=== PATIENT | female | born 1945 | race Caucasian/White ===

== ENCOUNTER 2018-03-26 20:37 | Inpatient (IN) | payer MEDICARE, OTHER ==
[~2018-03-26] VITALS: Ht 167.6 cm; Wt 101.1 kg
--- OUTSIDE RECORDS SUMMARY | ~2018-03-26 | XMS | Clinical Summary ---
Demographics + + + | Address | [address] | | | [place] [address] | + + + | Home Phone | | + + + | Preferred Language | Unknown | + + + | Marital Status | | + + + | Baptist Affiliation | Unknown | + + + | Race | Unknown | + + + | Ethnic Group | Unknown | + + + Author + + + | Author | [facility] | + + + | Organization | [facility] | + + + | Address | Unknown | + + + | Phone | Unavailable | + + + Support + + +---------+ + | Name | Relationship | Address | Phone | + + +---------+ + | No,Contact | ECON | Unknown | | + + +---------+ + Care Team Providers + +------+ + | Care Inker Machine Name | Role | Phone | + +------+ + | Lei Inman MD | PP | | + +------+ + Allergies + + + + + + | Active Allergy | Reactions | Severity | Noted | Comments | | | | | Date | | + + + + + + | Fluticasone | Rash | Medium | 11/20/19 | | | Propionate (Inhal) | | | 18 | | + + + + + + | Hydrocodone-Acetamin | Itching, Rash | Medium | 11/09/19 | | | ophen | | | 18 | | + + + + + + Current Medications + + +-------+---------+------+------+-------+ | Prescription | Sig. | Disp. | Refills | Star | End | Statu | | | | | | t | Date | s | | | | | | Date | | | + + +-------+---------+------+------+-------+ | simvastatin | Take 40 mg by mouth | | | | | Activ | | (ZOCOR) 40 MG tablet | nightly. | | | | | e | + + +-------+---------+------+------+-------+ | aspirin 81 MG | Take 81 mg by mouth | | | | | Activ | | tablet | daily. | | | | | e | + + +-------+---------+------+------+-------+ | montelukast | Take 10 mg by mouth | | | | | Activ | | (SINGULAIR) 10 MG | nightly. | | | | | e | | tablet | | | | | | | + + +-------+---------+------+------+-------+ | ranitidine | Take 150 mg by mouth | | | | | Activ | | (ZANTAC) 150 MG | daily. | | | | | e | | tablet | | | | | | | + + +-------+---------+------+------+-------+ | albuterol | Inhale 2 puffs into | | | | | Activ | | (PROVENTIL | the lungs every 4 | | | | | e | | HFA;VENTOLIN HFA) | (four) hours as | | | | | | | 108 (90 Base) | needed for Wheezing. | | | | | | | MCG/ACT inhaler | | | | | | | + + +-------+---------+------+------+-------+ | | Inhale 1 puff into | | | | | Activ | | umeclidinium-vilante | the lungs daily. | | | | | e | | rol (ANORO ELLIPTA) | | | | | | | | 62.5-25 MCG/INH | | | | | | | | inhaler | | | | | | | + + +-------+---------+------+------+-------+ Active Problems + + + | Problem | Noted Date | + + + | Right bundle branch block | 11/08/2017 | + + + | Hypertension | | + + + + + | Overview: off meds since she lost weight | + + +------+---+ | RBBB | | +------+---+ + + | Overview: bifascicular block (RBBB + LAFB) since at least | | 2011 | + + Family History + + +------+ + | Medical History | Relation | Name | Comments | + + +------+ + | Cancer | Father | | lip cancer | + + +------+ + | High cholesterol | Father | | | + + +------+ + | Hypertension | Father | | | + + +------+ + | Cancer | Maternal | | | | | Grandmoth | | | | | er | | | + + +------+ + | Cancer | Mother | | | + + +------+ + | Heart disease | Paternal | | | | | Grandfath | | | | | er | | | + + +------+ + | Hypertension | Paternal | | | | | Grandmoth | | | | | er | | | + + +------+ + | Stroke | Paternal | | | | | Grandmoth | | | | | er | | | + + +------+ + | Asthma | Son | | | + + +------+ + + +------+ + + | Relation | Name | Status | Comments | + +------+ + + | Brother | | Alive | | + +------+ + + | Brother | | Alive | | + +------+ + + | Father | | | Hyperlipidemia, HTN | | | | (Age | | | | | 89) | | + +------+ + + | Maternal Grandfather | | | HTN,CVA | + +------+ + + | Maternal Grandmother | | | throat cancer | | | | (Age | | | | | 82) | | + +------+ + + | Mother | | | colorectal cancer | | | | (Age | | | | | 72) | | + +------+ + + | Paternal Grandfather | | | [place] | | | | (Age | | | | | 52) | | + +------+ + + | Paternal Grandmother | | | age related | | | | (Age | | | | | 92) | | + +------+ + + | Sister | | Alive | | + +------+ + + | Sister | | Alive | | + +------+ + + | Son | | Alive | | + +------+ + + | Son | | Alive | | + +------+ + + | Son | | Alive | | + +------+ + + | Son | | Alive | | + +------+ + + Social History + +-------+ +--------+------+ | Tobacco Use | Types | Packs/Day | Years | Date | | | | | Used | | + +-------+ +--------+------+ | Never Smoker | | | | | + +-------+ +--------+------+ + +---+---+---+ | Smokeless Tobacco: | | | | | Never Used | | | | + +---+---+---+ + + +---------+ + | Alcohol Use | Drinks/We | oz/Week | Comments | | | ek | | | + + +---------+ + | Yes | | | "occasionally" | + + +---------+ + + + + | Sex Assigned at | Date Recorded | | | | + + + | Not on file | | + + + Last Filed Vital Signs + + + + | Vital Sign | Reading | Time Taken | + + + + | Blood Pressure | 124/68 | 11/19/2017 8:53 AM PDT | + + + + | Pulse | 82 | 11/19/2017 8:53 AM PDT | + + + + | Temperature | - | - | + + + + | Respiratory Rate | - | - | + + + + | Oxygen Saturation | 97% | 11/19/2017 8:53 AM PDT | + + + + | Inhaled Oxygen | - | - | | Concentration | | | + + + + | Weight | 97.5 kg (215 lb) | 11/19/2017 8:53 AM PDT | + + + + | Height | 167.6 cm (5' 6") | 11/19/2017 8:53 AM PDT | + + + + | Body Mass Index | 34.7 | 11/19/2017 8:53 AM PDT | + + + + Plan of Treatment + + + + + | Health Maintenance | Due Date | Last Done | Comments | + + + + + | Vaccine: | | | | | Dtap/Tdap/Td (1 - | 5 | | | | Tdap) | | | | + + + + + | Breast Cancer | | | | | Screening | 6 | | | | (Mammogram) | | | | + + + + + | Colon Cancer | | | | | Screening | 6 | | | | (Colonoscopy) | | | | + + + + + | DEXA SCAN SCREENING | | | | | | 1 | | | + + + + + | Vaccine: | | | | | Pneumococcal 65+ | 1 | | | | Low/Medium Risk (1 | | | | | of 2 - PCV13) | | | | + + + + + | Vaccine: Influenza | | | | | (#1) | 8 | | | + + + + + Results Not on filefrom Last 3 Months Insurance + +--------+ +------+-------+ + | Payer | Benefi | Subscriber | Type | Phone | Address | | | t Plan | ID | | | | | | / | | | | | | | Group | | | | | + +--------+ +------+-------+ + | MEDICARE | MEDICA | [id number] | | | [address] | | | RE | | | | [place] [address] | | | IP-OP | | | | | + +--------+ +------+-------+ + | [employer] [place] | MUTUAL | [id number] | | | | | | [place] | | | | | | | [place] | | | | | + +--------+ +------+-------+ + + +--------+ +--------+ + + | Guarantor Name | Accoun | Relation to | Date | Phone | Billing Address | | | t Type | Patient | of | | | | | | | | | | + +--------+ +--------+ + + | NGA SMITH | Person | Self [birth year] Home: | [address] | | | al/Fam | | 1945 | [phone] [place] | | | [place] | | | [phone] | [phone] | + +--------+ +--------+ + +
--- OUTSIDE RECORDS SUMMARY | ~2018-03-26 | XMS | Clinical Summary ---
Demographics + + + | Address | [address] | | | [place] [address] | + + + | Home Phone | | + + + | Preferred Language | Unknown | + + + | Marital Status | | + + + | Episcopal Affiliation | Unknown | + + + | Race | Unknown | + + + | Ethnic Group | Unknown | + + + Author + + + | Author | [facility] | + + + | Organization | [facility] | + + + | Address | Unknown | + + + | Phone | Unavailable | + + + Support + + +---------+ + | Name | Relationship | Address | Phone | + + +---------+ + | No,Contact | ECON | Unknown | | + + +---------+ + Care Team Providers + +------+ + | Care Assistant Professor Of Chemistry Name | Role | Phone | + [...] +------+-------+ + | MEDICARE | MEDICA | [id number] | | | [address] | | | RE | | | | [place] [address] | | | IP-OP | | | | | + +--------+ +------+-------+ + | [employer] [place] | MUTUAL | [id number] | | | | | | [place] | | | | | | | [place] | | | | | + +--------+ [...] | [place] | | | [phone] | [phone] | + +--------+ +--------+ + +
--- OUTSIDE RECORDS SUMMARY | ~2018-03-26 | XMS | Clinical Summary ---
Demographics + + + | Address | [address] | | | [place] [address] | + + + | Home Phone | | + + + | Preferred Language | Unknown | + + + | Marital Status | | + + + | Congregational Affiliation | Unknown | + + + | Race | Unknown | + + + | Ethnic Group | Unknown | + + + Author + + + | Author | [facility] | + + + | Organization | [facility] | + + + | Address | Unknown | + + + | Phone | Unavailable | + + + Support + + +---------+ + | Name | Relationship | Address | Phone | + + +---------+ + | No,Contact | ECON | Unknown | | + + +---------+ + Care Team Providers + +------+ + | Care Plant Engineering Supervisor Name | Role | Phone | + [...] + | Paternal Grandfather | | | [place] | | | | (Age | | [...] +------+-------+ + | MEDICARE | MEDICA | [id number] | | | [address] | | | RE | | | | [place] [address] | | | IP-OP | | | | | + +--------+ +------+-------+ + | [employer] [place] | MUTUAL | [id number] | | | | | | [place] | | | | | | | [place] | | | | | + +--------+ [...] | [place] | | | [phone] | [phone] | + +--------+ +--------+ + +
--- OUTSIDE RECORDS SUMMARY | ~2018-03-26 | XMS | Clinical Summary ---
Demographics + + + | Address | [address] | | | [place] [address] | + + + | Home Phone | | + + + | Preferred Language | Unknown | + + + | Marital Status | | + + + | Christian Affiliation | Unknown | + + + | Race | Unknown | + + + | Ethnic Group | Unknown | + + + Author + + + | Author | [facility] | + + + | Organization | [facility] | + + + | Address | Unknown | + + + | Phone | Unavailable | + + + Support + + +---------+ + | Name | Relationship | Address | Phone | + + +---------+ + | No,Contact | ECON | Unknown | | + + +---------+ + Care Team Providers + +------+ + | Care Vocational Rehabilitation Technician Name | Role | Phone | + [...] + | Paternal Grandfather | | | [place] | | | | (Age | | [...] +------+-------+ + | MEDICARE | MEDICA | [id number] | | | [address] | | | RE | | | | [place] [address] | | | IP-OP | | | | | + +--------+ +------+-------+ + | [employer] [place] | MUTUAL | [id number] | | | | | | [place] | | | | | | | [place] | | | | | + +--------+ [...] | [place] | | | [address] | [phone] | + +--------+ +--------+ + +
[~2018-03-26 20:37] MED LIST: ALBUTEROL SULF8.5 GM INH; ASPIRIN EC81 MG PO; CALCIUM + VITA1 EACH PO; DILAUDID2 MG PO; IPRAT-ALBUT 0.5-3 ML INH; LEVAQUIN500 MG PO; LOSARTAN POTAS100 MG PO; MONTELUKAST SOD10 MG PO; PREDNISONE10 MG PO; PROMETHAZINE HC25 M1 PO; QVAR7.3 G1 INH; RANITIDINE HCL75 MG PO; SIMVASTATIN40 MG PO
--- NOTE | 2018-03-27 01:04 | NUR ---
ADMIT TTO CCU PER STRETCHER, MOVED BY STANDING AND PIVOTING FROM STRETCHER TO BED. IS SOB THAT WORSENS WITH EXERTION. USING ASSESSORY MUSCLES AND HOB IS ELEVATED. DUO NEB GIVEN PER RT AND PT STATES THE NEBS ARE HELPING. IS ABLE TO SPEAK IN COMPLETE SENTENCES. UP TO BSC TO VOID AND MARSHAL FAIR. INC COUGH WITH EXERTION ALSO. BREATH TONES NOISY AND UNABLE TO ASSESS HEART TONES.
--- NOTE | 2018-03-27 01:11 | NUR ---
IS RESTING WITH EYES CLOSED.
--- NOTE | 2018-03-27 02:29 | NUR ---
CONT TO REST. NOCHANGES.
--- NOTE | 2018-03-27 03:50 | NUR ---
PT COUGHING, INC SOB. BREATH TONES DECREASED ON INSPIRATTION, COURSE AND WHEEZES EXPIRATION. RT HERE TO GIVE NEB. PT BETTER AFTER NBE AND HAS INC AIR MOVEMENT ON INSPIRATION. STATES FEELING BETTER NOW. STATES THAT THIS EPISODE WAS "SCARY".
--- NOTE | 2018-03-27 05:27 | NUR ---
AWAKENED FOR LAB DRAW. STATES FEELING BETTER. UP TO BSC TO VOID AND TOLERATED BETTER THAN BEFORE, HR UP TO 112, SL SOB WITH EXERTION.
--- NOTE | 2018-03-27 07:45 | NUR ---
PT SHIFT REPORT RECEIVED FROM ENGINEER RN. PT IS RESTING IN BED AT THIS TIME. PT CALLS APPROPRIATELY. NO ISSUES AT THIS TIME. WILL CONTINUE TO CLOSELY MONITOR.
--- NOTE | 2018-03-27 08:30 | NUR ---
PT SHIFT ASSESSMENT COMPLETED. PT IS RESTING IN BED AND ASSISTED UP TO CAMMODE. PT IS INDEPENDENT WITH TRANSFER. PT BREATH SOUNDS WITH AIR MOVEMENT THROUGHOOUT AND EXPIRATORRY WHEEZE THROUGHOUT. BOWEL TONES ACTIVE. WILL CONTINUE TO CLOSELY MONITOR.
--- NOTE | 2018-03-27 11:25 | NUR ---
MD IN TO SEE PATIENT. PER MD PT CAN TRANSFER TO THE MEDICAL FLOOR. PT IS AGREEABLE TO PLAN. PT UP TO CAMMODE AND TOLERATED WELL. NO OTHER ISSUES AT THIS TIME. WILL CONTINUE TO CLOSELY MONITOR.
--- NOTE | 2018-03-27 12:15 | NUR ---
PT REPORT GIVEN TO SHASHANK HUERTAS. PT WILL BE TRANSFERED TO ROOM 112. PT IS IN AGREEMENT WITH PLAN OF CARE. LUNCH ARRIVED. MEDICATIONS ADMINISTERED AND PT TRANSFERED TO ROOM IN CHAIR. ALL BELONGINGS SENT WITH PT. NO FURTHER QUESTIONS AT THIS TIME. SHASHANK HUERTAS WILL RESUME CARE FOR PT.
--- NOTE | 2018-03-27 12:15 | NUR ---
PATIENT TX FROM CCU TO ROOM 112 AT THIS TIME, PATIENT IS ALERT AND ORIENTED AND STEADY ON HER FEET. SHE REMAINS ON OXYGEN AT 1L PER NC AND O2 SATURATION IS AT 94%. PATIENT IV SALINE LOCKED AT THIS TIME AND LUNCH SET UP FOR HER.
--- NOTE | 2018-03-27 13:05 | NUR ---
PATIENT AMBULATED TO THE BATHROOM TO VOID, VOIDED 400 MLS OF CLEAR YELLOW URINE, NO C/O SOB AT THIS TIME
--- NOTE | 2018-03-27 13:38 | NUR ---
PATIENT SITTING IN CHAIR. PATIENT ASKED FOR ANOTHER BREATHING TREATMENT, RN AND RESPATORY NOTIFIED. FRESH WATER GIVEN. CALL LIGHT IN REACH. NO FURTHER NEEDS AT THIS TIME.
--- NOTE | 2018-03-27 14:05 | NUR ---
no change in patients jamil at this time.
[2018-03-27] MEDS ORDERED: ANORO ELLIPTA1 EACH INH (15:24)
[2018-03-27] MEDS ORDERED: ROSUVASTATIN CA10 MG PO (15:24)
[2018-03-27] MEDS ORDERED: VITAMIN D250000 UNIT PO (15:26)
[2018-03-27] MEDS ORDERED: ACID CONTROL150 MG PO (15:29)
[2018-03-27] MEDS ORDERED: ALBUTEROL2.5 MG/3 M INH (15:32)
--- NOTE | 2018-03-27 15:33 | NUR ---
Medications reconciled with patient interview and [facility] pharmacy records
--- NOTE | 2018-03-27 15:46 | EKG ---
[facility] [address] [place], [place] [address] Signed Sinus tachycardia Incomplete right bundle branch block Left anterior fascicular block Left ventricular hypertrophy with repolarization abnormality Anteroseptal infarct , age undetermined Abnormal ECG No previous ECGs available Confirmed by YOLANDA BERRY DO ([id number]) on 03/27/2018 3:46:06 PM Electronically Signed By: YOLANDA BERRY DO 03/27/18 1546 PATIENT NAME: NGA HO Electrocardiogram DATE OF : 47 PHYSICIAN: YOLANDA BERRY DO REPORT #: [id number] REPORT IS CONFIDENTIAL AND NOT TO BE RELEASED WITHOUT AUTHORIZATION
--- NOTE | 2018-03-27 17:21 | NUR ---
PATIENT SITTING IN CHAIR, IN ROOM. CALL LIGHT IN REACH. NO FURTHER NEEDS AT THIS TIME.
--- NOTE | 2018-03-27 19:04 | NUR ---
RECEIVED REPORT FROM ALEKSANDAR OLVERA. PT RESTING IN BED. ON OXYGEN 1 L NC. PT IS ON TELE 5. IV SALINE LOCKED. C.O. MILD SAUCEDO BUT DENIES NEEDS AT THIS TIME. CALL LIGHT IN REACH.
--- NOTE | 2018-03-27 20:59 | NUR ---
ROUNDED CHARGE. PATIENT IS RESTING IN BED. PATIENT DENIES ANY COMMENTS, QUESTIONS, OR CONCERNS. CALL LIGHT IN REACH.
--- NOTE | 2018-03-27 22:27 | NUR ---
ASSESSMENT COMPLETED. PT DENIES PAIN OR SOB AT THIS TIME. WHEEZES THROUGHOUT ALL LOBES, PT ON 1 L VIA NC. INSULIN GIVEN ORDERED. IV FLUSHES WNL AND IS SALINE LOCKED. PT DENIES NEEDS AT THIS TIME. CALL LIGHT IN REACH.
--- NOTE | 2018-03-28 00:30 | NUR ---
PT SLEEPING IN BED. BREATHING EVEN AND UNLABORED. CALL LIGHT IN REACH.
--- NOTE | 2018-03-28 03:16 | NUR ---
PT SLEEPING IN BED, BREATHING EVEN AND UNLABORED. CALL LIGHT IN REACH.
--- NOTE | 2018-03-28 05:04 | NUR ---
ASSESSMENT COMPLETE. EXPIRATORY WHEEZE AUSCULTATED THROUGHOUT. IV SALINE LOCKED. LABORED BREATHING WITH ACTIVITY AND AUDITORY WHEEZES. I L OXYGEN VIA NC. ICE WATER AT BEDSIDE. NO FURTHER REQUESTS AT THIS TIME.
--- NOTE | 2018-03-28 05:18 | NUR ---
PT SLEPT THROUGHOUT SHIFT. RECEIVED PRN BREATHING TX. INDEPENDENT UP TO BATHROOM. WHEEZES AUSCULTATED THROUGHOUT. SATS WNL ON 1 L NC. IV SALINE LOCKED. TELE 5, SINUS TACHYCARDIA.
--- NOTE | 2018-03-28 08:30 | NUR ---
PT RESTING COMFORTABLY IN BED WATCHING TV WITH NO C/O PAIN. PT IS A/O X4 WITH AN INTERMITTENT, DRY COUGH. SHE STATES SHE HAS OCCASIONAL CHEST TIGHTNESS WHEN SHE IS HAVING A "COUGHING FIT." MEDS GIVEN AND ASSESSMENT COMPLETED. CALL LIGHT AND BELONGINGS WITHIN REACH. WILL CONTINUE TO MONITOR.
--- NOTE | 2018-03-28 09:30 | NUR ---
PT STILL COMFORTABLY RESTING WITH NO C/O PAIN, NO QUESTIONS OR CONCERNS, STATES INTEREST IN TAKING A SHOWER THIS MORNING. CALL LIGHT AND BELONGINGS WITHIN REACH. WILL CONTINUE TO MONITOR.
--- NOTE | 2018-03-28 10:40 | NUR ---
WHILE PATIENT WAS IN SHOWER I STAYED IN HER ROOM TO STAND BY IN CASE SHE NEEDED MY HELP. ALSO CHANGED THE SHEETS ON HER BED. HER IS IN THE ROOM. PATIENT IS NOW LAYING DOWN. TELE IS ON. CALL LIGHT NEXT TO HER.
--- NOTE | 2018-03-28 11:44 | NUR ---
PT RESTING COMFORTABLY WITH VISITOR IN HER ROOM, NO C/O PAIN OR SOB/BREATHING PROBLEMS AT THIS TIME; PT STATED AT THE END OF HER SHOWER SHE FELT SOME SOB BUT IT HAS SINCE GONE AWAY. BLOOD SUGAR 94. RT ENTERED ROOM TO COMPLETE TREATMENT. NO QUESTIONS OR CONCERNS AT THIS TIME BY PT. CALL LIGHT AND BELONGINGS WITHIN REACH. WILL CONTINUE TO MONITOR.
--- NOTE | 2018-03-28 12:48 | NUR ---
PRN TYLENOL GIVEN AT THIS TIME FOR PT C/O HEADACHE AT A 5/10 ON A 1-10 PAIN SCALE. PT STATES TYLENOL WORKED FOR HER HEADACHE PREVIOUSLY. PT VOIDED 300 AND STATED SHE HAD A LARGE BM WIHTIN THIS LAST HOUR. NO OTHER QUESTIONS OR CONCERNS. CALL LIGHT AND BELONGINGS WITHIN REACH. I WILL REASSESS PAIN AND CONTINUE TO MONITOR.
--- NOTE | 2018-03-28 13:37 | NUR ---
PT ASLEEP IN BED AT THIS TIME. WILL CONTINUE TO LET REST. TYLENOL APPEARS TO HAVE HELPED THE HEADACHE PT SEEMS COMFORTABLE WHILE NAPPING. WILL LET HER REST MORE AND WILL COMPLETE AFTERNOON ASSESSMENT SOON. CALL LIGHT AND BELONGINGS WITHIN REACH. WILL CONTINUE TO MONITOR.
--- NOTE | 2018-03-28 14:35 | NUR ---
PT UP IN CHAIR AT THIS TIME AFTER AMBULATING THE HALLWAY. PT STATES THAT HER HEADACHE IS GONE AFTER GETTING PRN TYLENOL EARLIER; PAIN IS A 0. PT STATES THAT HER BREATHING WHILE AMBULATING HALLWAY WAS WNL AND THAT SHE HAD NO ISSUES. CALL LIGHT AND BELONGINGS WITHIN REACH. WILL CONTINUE TO MONITOR.
--- NOTE | 2018-03-28 18:23 | NUR ---
PT VS AND CONDITION STABLE TODAY ON 03/28/18 DAY SHIFT. PT PLEASANT, CALM AND COOPERATIVE WITH NO C/O OF PAIN OTHER THAN A HEADACHE THIS AFTERNOON, WHICH WENT AWAY AFTER TAKING PRN TYLENOL. PT ON ROOM AIR, NO LONGER NEEDING O2 VIA NC. SHE SHOWERED TODAY, SHE HAD A BM TODAY, AND AMBULATED THE HALLWAY AT LEAST 3 TIMES TODAY INDEPENDENTLY. PT STATES SHE ISN'T HER BASELINE BUT THAT SHE THINKS SHE IS IMPROVING. EDUCATION COMPLETED WITH PT THROUGHOUT SHIFT. PT HAD ADEQUATE I/O. NO CURRENT QUESTIONS OR CONCERNS AND IS SITTING COMFORTABLY IN HER CHAIR WATCHING TV. CALL LIGHT AND BELONGINGS WITHIN REACH. WILL CONTINUE TO MONITOR.
--- NOTE | 2018-03-28 19:05 | NUR ---
shift report received, patient resting in bed. denies any needs. call light in reach.
--- NOTE | 2018-03-28 20:29 | NUR ---
VITALS AND I&OS DONE AND CHARTED. FRESH WATER GIVEN. BEDSIDE TABLE AND CALL LIGHT WITHIN REACH.
--- NOTE | 2018-03-28 21:30 | NUR ---
IN ROOM FOR PT. ASSESSMENT. ACCUCHECK COMPLETE. BG 114. LS COURSE WITH INSPIRATORY/EXPIRATORY WHEEZES. NONPRODUCTIVE, LOOSE COUGH PRESENT. HEART SOUNDS HEARD. NORMAL SINUS ON TELE #5. PULSES EQUAL BILATERALLY. NO C/O PAIN AT THIS TIME. DENIES SOB/CP. 02 SAT 93 ON RA. DENIES ANY REQUESTS AT THIS TIME. CALL LIGHT WITHIN REACH. BED IN LOW POSITION.
--- NOTE | 2018-03-28 21:50 | NUR ---
CHARGE NURSE ROUNDING NOTE: IN BED, NO C/O CP OR PAIN. TELE IN PLACE, O2 IN PLACE, CALL IGHT AT HANDS REACH
--- NOTE | 2018-03-28 23:00 | NUR ---
PATIENT APPEARS TO BE SLEEPING SOUNDLY. RR 16. CALL LIGHT IN REACH.
--- NOTE | 2018-03-29 01:00 | NUR ---
PATIENT RESTING IN BED. RR 18.
--- NOTE | 2018-03-29 04:00 | NUR ---
PATIENT INDEPENDENT UP TO BETHROOM. HAT EMPTIED. PATIENT DENIES NEEDS AT THIS TIME. TOLERATING ROOM AIR. NO NEED FOR NEB AT THIS TIME. LUNGS ARE COARSE THROUGHOUT. PATIENT ATTEMPTING TO SLEEP.
--- NOTE | 2018-03-29 06:00 | NUR ---
PATIENT SLEPT MOST OF THE NIGHT. AMBULATED INDEPENDENTLY IN ROOM. TOLERATING ROOM AIR. SCHEDULED NEBS. LUNGS ARE COARSE WITH WHEEZING THROUGHOUT THAT IMPROVES BUT DOES NOT CLEAR WITH NEB TREATMENTS. ENCOURAGE GOOD RESPIRTORY HABITS AND PROVIDE EDUCATION.
--- NOTE | 2018-03-29 06:46 | NUR ---
VITALS AND I&OS DONE AND CHARTED. DAILY WEIGHT DONE WELL. BEDSIDE TABLE AND CALL LIGHT WITHIN REACH.
--- NOTE | 2018-03-29 07:41 | NUR ---
RECIEVED BEDSIDE REPORT FROM ALEKSANDAR LIMON AND ALEKSANDAR KEENE. PT RESTING IN BED, BUT AWAKE AND ALERT. PT DENIES PAIN, SOB, NAUSEA AT THIS TIME.
[2018-03-29] MEDS ORDERED: IPRAT-ALBUT 0.5-3 ML INH (08:30)
[2018-03-29] MEDS ORDERED: PREDNISONE20 MG PO (08:31)
[2018-03-29] MEDS ORDERED: BUDESONIDE0.5 MG/2 M INH (08:32)
[2018-03-29] MEDS ORDERED: QVAR REDIHALE10.6 G1 INH (08:51)
--- NOTE | 2018-03-29 11:06 | NUR ---
PT READY FOR DISCHARGE. INSTRUCTIONS GIVEN VERBALLY AND WRITTEN. IV REMOVED, TIP INTACT. PT DRESSED AND ALL BELONGINGS PACKED. VSS TAKEN. PT WHEELED TO VEHICLE IN WHEELCHAIR BY COMMERCIAL DRIVER.
== END 2018-03-29 11:00 | disposition home or self-care (01) | DRG 202 ==
LOC: ED 20:37 → CCU 20:38 → MS 20:38 → ED 20:38 → CCU 23:33 → MS 23:33 → CCU 23:33 → ED 23:34 → MS 23:34 → CCU 23:34 → MS 03-27 12:15 → CCU 03-27 12:15 → MS 03-27 12:15
PROVIDERS: ADMIT Student in an Organized Health Care Education/Training Program
DX: J45.901 Unspecified asthma with (acute) exacerbation (principal); I45.2 Bifascicular block; R00.0 Tachycardia, unspecified; T44.7X5A Adverse effect of beta-adrenoreceptor antagonists, initial encounter; R09.02 Hypoxemia; I10 Essential (primary) hypertension; E78.5 Hyperlipidemia, unspecified; R51 Headache; Z77.110 Contact with and (suspected) exposure to air pollution; Z88.5 Allergy status to narcotic agent; Z79.51 Long term (current) use of inhaled steroids; Z79.899 Other long term (current) drug therapy
CPT/HCPCS: 36415; 36600; 71045; 80048; 80053; 82803; 83735; 83880; 84484; 85025; 93005; 93010; 94640; 94645; 94667; 94668; 96374; 99285; J1815; J2930; J3475; J7120; J7512

== ENCOUNTER 2018-08-20 09:08 | Day surgery (SDC) | payer MEDICARE, OTHER ==
[~2018-08-20] VITALS: Ht 167.6 cm; Wt 101.1 kg
[~2018-08-20 09:08] MED LIST changes: +ACID CONTROL150 MG PO; +ALBUTEROL2.5 MG/3 M INH; +ANORO ELLIPTA1 EACH INH; +BUDESONIDE0.5 MG/2 M INH; +PREDNISONE20 MG PO; +QVAR REDIHALE10.6 G1 INH; +ROSUVASTATIN CA10 MG PO; +VITAMIN D250000 UNIT PO
[2018-08-20] MEDS ORDERED: BREO ELLIPTA I1 EACH INH (09:26)
[2018-08-20] MEDS ORDERED: GINGER ROOT550 MG PO (09:28)
[2018-08-20] MEDS ORDERED: HAIR, SKIN & N1 EAC2 PO (09:29)
[2018-08-20] MEDS ORDERED: TURMERIC500 M2 PO (09:29)
--- NOTE | 2018-08-20 10:47 | NUR ---
08/20/18 1047 Sheets,Ronda 1041 PT ARRIVED TO PACU ON 3L VIA NC AND DROWSY AND WAKES TO TACTILE STIMULI. PT REORINETED TO PACU. RESP EVEN AND UNLABORED. PT ASLEEP OFF AND ON.
--- NOTE | 2018-08-28 08:43 | OR ---
[facility] [address], [place] [address] Signed DATE OF OPERATION: 08/20/2018 SURGEON: Jerardo Garcia MD PREOPERATIVE DIAGNOSES: 1. Proximal esophageal dysphagia. 2. Moderate-sized hiatal hernia (40 to 36 cm). 3. Gastroesophageal reflux. 4. History of Phelps's esophagus. POSTOPERATIVE DIAGNOSES: 1. Moderate-sized hiatal hernia (40 to 36 cm). 2. Mild proximal and distal esophagitis. 3. No visible evidence of Phelps's esophagus. PROCEDURES: EGD with biopsies of the antrum, GE junction, distal and proximal esophagus. ESTIMATED BLOOD LOSS: None. INDICATIONS: Nga is a 73-year-old female, asked to see me for a followup endoscopy. Her last upper endoscopy came in 2013, where she was found to have a moderate-sized hiatal hernia, measuring from 40 to 36 cm. There was some concern about Phelps's esophagus. She has been trying to use Zantac just once a day and is having acid reflux. She has developed proximal esophageal dysphagia particularly breads and solids, it is high up near the sternal notch over the last several months. She has been trying to use [place] at night. She was asked to see me for a followup endoscopy. In the office, I gave her a pamphlet on endoscopy and we reviewed the nature of the test. She understands there is risk including, but not limited to gas bloating, crampy abdominal pain, bleeding, perforation, requiring surgery, and missed diagnosis. She also understands the need for IV conscious sedation. She had expressed understanding and wished to proceed. PROCEDURE NOTE: Nga was taken into our endoscopy suite and placed in the supine semi-recumbent position. The posterior oropharynx was anesthetized with Hurricaine spray. A bite block was utilized for the case. She was given 4 mg of Versed and 75 mcg of fentanyl to cover the case. The adult gastroscope was introduced and advanced quite readily out Electronically Signed By: JERARDO GARCIA MD 08/28/18 0843 PATIENT NAME: NGA HO OPERATIVE REPORT DATE OF : 47 REPORT #: [id number] PHYSICIAN: JERARDO GARCIA MD PCP: LEI INMAN MD REPORT IS CONFIDENTIAL AND NOT TO BE RELEASED WITHOUT AUTHORIZATION [facility] [address], [place] [address] Signed into the third portion of the duodenum under direct visualization of camera without difficulty. The duodenum and pyloric channel were unremarkable. She had very minimal erythema in her stomach, so we went ahead and took a biopsy of the antrum for pathologic review. She has had a previous CLOtest performed. Upon retroflexion of the scope, we could easily see her moderate-sized hiatal hernia. The scope was withdrawn up through the area of the GE junction, which was compliant without stricture. No evidence of any Yessenia-Henderson tear or Dominguez ulcer associated with the hiatal hernia. There is no gastric or esophageal varices. At the Z-line, she has ljda-bq-rnstoaib disruption with some granulation tissue. However, no Phelps's mucosa. We went and took a biopsy at the GE junction. We could see some mild streakiness throughout the esophagus representing her acid reflux. We went ahead and took a biopsy at the distal and proximal esophagus for pathologic review. Pictures were taken throughout for photodocumentation. The gas had been suctioned out and the gastroscope withdrawn. The vocal cords and the retinoids were completely unremarkable. After this, the Nga was taken to the recovery room in stable condition. Jerardo Garcia MD ALB/MODL /[id number] cc: Lei Inman MD Copies: LEI INMAN MD ~ Electronically Signed By: JERARDO GARCIA MD 08/28/18 0843 PATIENT NAME: NGA HO OPERATIVE REPORT DATE OF : 47 REPORT #: [id number] PHYSICIAN: JERARDO GARCIA MD PCP: LEI INMAN MD REPORT IS CONFIDENTIAL AND NOT TO BE RELEASED WITHOUT AUTHORIZATION
== END 2018-08-20 11:17 | disposition home or self-care (01) ==
LOC: OPS 09:08 → DS 10:30 → OPS 10:30
PROVIDERS: Colon & Rectal Surgery
PROC: 0DB78ZX Excision of Stomach, Pylorus, Via Natural or Artificial Opening Endoscopic, Diagnostic (ICD-10-PCS; 2018-08-20)
PROC: 0DB18ZX Excision of Upper Esophagus, Via Natural or Artificial Opening Endoscopic, Diagnostic (ICD-10-PCS; 2018-08-20)
PROC: 0DB38ZX Excision of Lower Esophagus, Via Natural or Artificial Opening Endoscopic, Diagnostic (ICD-10-PCS; 2018-08-20)
PROC: 0DB48ZX Excision of Esophagogastric Junction, Via Natural or Artificial Opening Endoscopic, Diagnostic (ICD-10-PCS; principal; 2018-08-20 10:30)
DX: K21.0 Gastro-esophageal reflux disease with esophagitis (principal); K29.50 Unspecified chronic gastritis without bleeding; K44.9 Diaphragmatic hernia without obstruction or gangrene; I10 Essential (primary) hypertension; J45.909 Unspecified asthma, uncomplicated; E78.5 Hyperlipidemia, unspecified; M81.0 Age-related osteoporosis without current pathological fracture; Z88.5 Allergy status to narcotic agent; Z88.8 Allergy status to other drugs, medicaments and biological substances; Z79.899 Other long term (current) drug therapy; Z79.51 Long term (current) use of inhaled steroids
CPT/HCPCS: 88305; 88312; 88342; G0500; J2250; J3010; J7120

== ENCOUNTER 2019-07-15 07:11 | Day surgery (SDC) | payer MEDICARE, OTHER ==
[~2019-07-15] VITALS: Ht 167.6 cm; Wt 92.5 kg
[~2019-07-15 07:11] MED LIST changes: +BREO ELLIPTA I1 EACH INH; +GINGER ROOT550 MG PO; +HAIR, SKIN & N1 EAC2 PO; +TURMERIC500 M2 PO
[2019-07-15] MEDS ORDERED: ACID CONTROLLER10 MG PO (07:35)
--- NOTE | 2019-07-15 09:36 | NUR ---
07/15/19 0936 Analy Bronson [id number]-PATIENT ARRIVED TO PACU ON 2L NC AWAKE DROWSY DENIES PAIN OR NAUSEA. ABDOMEN SOFT. ENCOURAGED TO PASS GAS. IVF INFUSING. RR EVEN. PATIENT DOZES BACK TO SLEEP.
--- NOTE | 2019-07-15 10:27 | OR ---
[facility] [address] [place], [place] [address] Signed DATE OF OPERATION: 07/15/2019 SURGEON: Jerardo Garcia MD PREOPERATIVE DIAGNOSES: 1. Mother with a history of colon cancer at age 59 and of colon cancer at age 72. 2. Significant sigmoid diverticulosis. 3. Internal hemorrhoids. POSTOPERATIVE DIAGNOSES: 1. Kfmrehqe-za-kdopxf sigmoid diverticulosis. 2. Minimal internal hemorrhoids. PROCEDURE: Colonoscopy without biopsy. ESTIMATED BLOOD LOSS: None. INDICATIONS: Nga is a 74-year-old female, who came for followup colonoscopy. Her mother was actually diagnosed with colon cancer at age 59. Unfortunately came back and she ended up passing from a colon cancer at age 72. Nga herself has significant sigmoid diverticular disease. Particularly, several areas of angulation. She also has ffhljxa-va-duzrvdmh internal hemorrhoids. In the office, I gave her a pamphlet on colonoscopy and we reviewed that together along with the risks including, but not limited to gas, bloating, crampy abdominal pain, bleeding, perforation requiring surgery, and missed diagnosis. She also understands the need for IV conscious sedation. She had expressed understanding and wished to proceed. PROCEDURE NOTE: Nga was taken into our endoscopy suite and placed in the left lateral decubitus position. She was given a total of 7 mg of Versed and 150 mcg fentanyl to cover the case. On this occasion, we used our pediatric colonoscope. It seemed that actually helped quite a bit getting up through her sigmoid colon. We reached her cecum without much difficulty after going through several areas of significant angulation in the sigmoid colon. Overall, prep was good. The scope was slowly withdrawn. We could easily see the appendiceal orifice and the ileocecal valve. We took pictures throughout for photodocumentation. There were no polyps on this occasion. Again, she has sigmoid diverticulosis. They were moderate in size, moderate in number, but there were a couple Electronically Signed By: JERARDO GARCIA MD 07/15/19 1027 PATIENT NAME: NGA HO OPERATIVE REPORT DATE OF : 47 REPORT #: [id number] PHYSICIAN: JERARDO GARCIA MD PCP: LEI CLEMENT MD REPORT IS CONFIDENTIAL AND NOT TO BE RELEASED WITHOUT AUTHORIZATION [facility] [address] [place] [id number] Signed of areas of angulation that required extra time to pass the scope. The rectum itself was unremarkable. Upon retroflexion of the scope, she has just ykpbgcz-ey-quekhuyd internal hemorrhoids. After this, the gas was suctioned out and the colonoscope removed. Nga tolerated the procedure quite well. RECOMMENDATIONS: Nga can follow up in 5 years for repeat colonoscopy so long as her health holds up. It is probably wright to use a pediatric scope once again in the future. Jerardo Garcia MD ALB/MODL /[id number] cc: MD Lei Malik MD Copies: JERARDO GARCIA MD, MALCOLM MD ~ Electronically Signed By: JERARDO GARCIA MD 07/15/19 1027 PATIENT NAME: NGA HO OPERATIVE REPORT DATE OF : 47 REPORT #: [id number] PHYSICIAN: JERARDO GARCIA MD PCP: LEI CLEMENT MD REPORT IS CONFIDENTIAL AND NOT TO BE RELEASED WITHOUT AUTHORIZATION
--- NOTE | 2019-07-15 14:58 | NUR ---
CONNECTED WITH PTS' NAN. HE WAS TRYING TO WAIT PATIENTLY, BUT SEEMED TO BE HAVING DIFFICULTY WITH THE PATIENTLY PART. PLEASANT, THANKED ME FOR CHECKING. EXTENDED A BLESSING, WILL FOLLOW NEEDED
== END 2019-07-15 10:25 | disposition home or self-care (01) ==
LOC: OPS 07:11 → DS 07:11 → OPS 08:15 → DS 08:15 → OPS 10:25
PROVIDERS: Colon & Rectal Surgery
PROC: 0DJD8ZZ Inspection of Lower Intestinal Tract, Via Natural or Artificial Opening Endoscopic (ICD-10-PCS; principal; 2019-07-15 08:15)
DX: Z12.11 Encounter for screening for malignant neoplasm of colon (principal); K57.30 Diverticulosis of large intestine without perforation or abscess without bleeding; K64.8 Other hemorrhoids; I10 Essential (primary) hypertension; J45.909 Unspecified asthma, uncomplicated; E78.5 Hyperlipidemia, unspecified; M81.0 Age-related osteoporosis without current pathological fracture; Z80.0 Family history of malignant neoplasm of digestive organs; Z79.899 Other long term (current) drug therapy; Z98.890 Other specified postprocedural states; Z88.8 Allergy status to other drugs, medicaments and biological substances; Z88.5 Allergy status to narcotic agent
CPT/HCPCS: 99153; G0500; J2250; J3010; J7121

== ENCOUNTER 2021-06-02 09:16 | Emergency (ER) | payer MEDICARE, OTHER ==
[~2021-06-02] VITALS: Ht 167.6 cm; Wt 92.5 kg
[~2021-06-02 09:16] MED LIST changes: +ACID CONTROLLER10 MG PO
[2021-06-02] MEDS ORDERED: AMLODIPINE BESYL5 MG PO (09:44)
== END 2021-06-02 12:10 | disposition home or self-care (01) ==
LOC: ED 09:16
DX: U07.1 COVID-19 (principal); Z23 Encounter for immunization; J45.909 Unspecified asthma, uncomplicated; I10 Essential (primary) hypertension; E78.5 Hyperlipidemia, unspecified; K21.9 Gastro-esophageal reflux disease without esophagitis; Z88.5 Allergy status to narcotic agent; Z88.8 Allergy status to other drugs, medicaments and biological substances; Z79.899 Other long term (current) drug therapy
CPT/HCPCS: 99283-25; M0247

== ENCOUNTER 2023-11-29 05:50 | Day surgery (SDC) | payer MEDICARE, OTHER ==
[2023-11-22 09:02] VITALS: BP 125/81
[~2023-11-29] VITALS: Ht 167.6 cm; Wt 102.0 kg
[~2023-11-29 05:50] MED LIST changes: +AMLODIPINE BESYL5 MG PO; +CALCIUM + D SO1 EACH PO; +CANDICIDAL CAP1 EACH PO; +CELECOXIB200 MG PO; +CENTRUM SILVER1 EAC3 PO; +CRESTOR10 MG PO; +DULOXETINE HCL20 MG PO; +FAMOTIDINE20 MG PO; +FOSAMAX70 MG PO; +GABAPENTIN300 MG PO; +HYDROMORPHONE HC2 MG PO; +IRON18 MG PO; +IRON325 M1 PO; +K2 PLUS D3 TAB1 EACH PO; +LACTATED RINGER'S 1,000 ML IV SCH; +SENNA LAX8.6 MG PO; +SINGULAIR10 MG PO; +VITAMIN C500 M4 PO; +VITAMIN D325 MCG PO; +XARELTO10 MG PO
[2023-11-29 06:03] VITALS: BP 117/73
[2023-11-29] MEDS ORDERED: propofoL 200 MG/20 ML VIAL ONE (06:27)
[2023-11-29] MEDS ORDERED: LIDOCAINE HCL 1% 5 ML SDV INJ ONE (07:00)
[2023-11-29] MEDS ORDERED: IBLOOD GLUCOSE TEST STRIP 1 EA TEST VI PRN (07:00)
[2023-11-29] MEDS ORDERED: CEFAZOLIN SODIUM 2 GM/20 ML SYR IV SCH (07:00)
--- NOTE | 2023-11-29 07:20 | NUR ---
UNABLE TO VISIT DURING SPIRITUAL CARE ROUNDS. PT GONE FOR PROCEDURE. PROVIDED PRAYER.
[2023-11-29] MEDS ORDERED: ATROPINE SULFATE 1 MG/ML VIAL ONE (08:04)
--- NOTE | 2023-11-29 08:30 | NUR ---
11/29/23 0830 Analy Bronson 0844-PATIENT ARRIVED TO PACU ON 10L MASK RR EVEN.PATIENT NONAROUSABLE ORAL AIRWAY IN PLACE LAYING LEFT LATERAL ABDOMEN SOFT. IVF INFUSING. SR HR 70'S.
[2023-11-29 09:14] VITALS: BP 116/80
--- NOTE | 2023-11-29 09:43 | OR ---
[facility] [address] [place], [place] [address] Signed DATE OF OPERATION: 11/29/2023 SURGEON: Jerardo Garcia MD PREOPERATIVE DIAGNOSES: 1. Chronic iron deficiency anemia, now resolved. 2. Moderate-sized hiatal hernia. 3. 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 4. Proximal esophageal dysphagia. 5. Possible history of eosinophilic esophagitis. 6. Tortuous sigmoid colon. 7. Moderate to severe diverticulosis. 8. Internal hemorrhoids. 9. Mother with colon cancer at age 59 and again at age 72. POSTOPERATIVE DIAGNOSES: 1. Moderate sized hiatal hernia. 2. GE junction at 35 cm. 3. Mild distal gastritis. 4. Mild distal esophagitis. 5. No visible evidence of Phelps's mucosa. 6. Tortuous sigmoid colon. 7. Moderate to severe diverticulosis. 8. Internal hemorrhoids. PROCEDURES: 1. EGD with CLOtest and biopsies of the antrum, GE junction and midesophagus. 2. Colonoscopy without biopsy. ESTIMATED BLOOD LOSS: None. INDICATIONS: Nga is a 78-year-old obese female, asked to see me for yet another upper and lower endoscopy. It looks like . She did have a right knee replaced in the past with Dr. Miller. She has had chronic iron deficiency anemia for many years. She ended up with 2 units of packed red blood cells before she had her knee replaced. Her hemoglobin had gone down as far as 7. She has been on oral iron therapy. She got better and apparently did not need iron infusions from what she told me today. We last helped her in 2019. She has a moderate sized hiatal hernia with some inflammation in Electronically Signed By: JERARDO GARCIA MD 11/29/23 0943 PATIENT NAME: NGA HO OPERATIVE REPORT DATE OF : 47 REPORT #: [id number] PHYSICIAN: JERARDO GARCIA MD PCP: LEI CLEMENT MD REPORT IS CONFIDENTIAL AND NOT TO BE RELEASED WITHOUT AUTHORIZATION [facility] [address], [place] [address] Signed her stomach. She also had a little bit of distal esophagitis. At one point based on biopsies, there was some concern she could have mild eosinophilic esophagitis. However, she had never been treated with steroids. She also has rather significant diverticulosis and a very tortuous sigmoid colon. In 2019, I had used a pediatric scope to get through this area. We also know that her mother was treated for colon cancer at age 59, but unfortunately she got colon cancer at age 72 and then from the colon cancer. She did have a Cologuard test in 2020, which was negative. She does not seem to have any new upper or lower GI complaints. In the office, I gave her a pamphlet on upper and lower endoscopy. We reviewed the nature of the two tests. There is risk including, but not limited to gas bloating, crampy abdominal pain, bleeding, perforation requiring surgery, and missed diagnosis. We also reviewed the written instructions for the bowel prep line by line. It is the same bowel prep she has taken multiple times. Also because of her advanced age along with multiple medical issues and her full round face as well as a very difficult sigmoid colon, we asked for monitored anesthesia care with propofol infusion as we have in the past. That worked out very well for her today. She had expressed understanding and wished to proceed. PROCEDURE IN DETAIL: Nga was taken into the endoscopy suite and placed in the supine semi-recumbent position. She was given monitored anesthesia care with propofol infusion per our nurse automotive services manager. A bite block was utilized for the case. The adult gastroscope was introduced and advanced under direct visualization of the camera. It took a few minutes to get down through her hiatal hernia and out into the antrum and down into the duodenum. The duodenum and pyloric channel were completely unremarkable. Once again, she has very mild streaky erythematous changes in the distal half of her stomach. We went ahead and took a biopsy for pathologic review as well as CLOtest. There were no ulcerations in the pyloric bulb nor the stomach. Upon retroflexion of the scope, we can easily see her moderate-sized hiatal hernia. The scope was withdrawn up through the area of the GE junction, which was compliant without stricture. She has very minimal disruption and inflammatory changes right along the edge of the Z-line at 35 cm. There was no visible evidence of any Phelps's mucosa. We did not see any ulceration or Yessenia-Henderson tear in the hiatal hernia. She was coughing a bit at that point, and we could not get a nice measurement on the hiatal hernia, but I am estimating around 4 to 5 cm. It seems to be about the same as last time. The middle and upper esophagus were unremarkable. We went ahead and took a biopsy of the midesophagus based on her previous history of possible eosinophilic esophagitis and her complaints of proximal esophageal dysphagia. After this, the gas was suctioned out and the gastroscope removed. Overall, Nga tolerated the upper endoscopy quite well. Nga was rotated into the left lateral decubitus position. She was maintained on monitored anesthesia care with propofol infusion per our nurse automotive services manager. A digital rectal exam was performed. She had good sphincter tone. No external hemorrhoids. No Electronically Signed By: JERARDO GARCIA MD 11/29/23 0943 PATIENT NAME: NGA HO OPERATIVE REPORT DATE OF : 47 REPORT #: [id number] PHYSICIAN: JERARDO GARCIA MD PCP: LEI CLEMENT MD REPORT IS CONFIDENTIAL AND NOT TO BE RELEASED WITHOUT AUTHORIZATION [facility] [address], [place] [address] Signed masses. The adult colonoscope was introduced and advanced under direct visualization of the camera. Unfortunately, on this occasion her prep was moderate. She had several areas of liquid particulate stool matter that I could not quite suction out completely. We went very slowly and carefully up through the sigmoid colon and on this occasion the adult colonoscope was able to pass through and then opened up quite nicely into the left colon. The scope was then passed fairly readily up into the cecum itself. Of course, the proximal area of the colon was actually much more clean. She had a little more stool hang up in the sigmoid colon and rectum. We could easily see the appendiceal orifice and the ileocecal valve. We looked behind the ileocecal valve. The scope was then slowly withdrawn. We took several pictures throughout for photodocumentation. She has a tiny lipoma in the distal right colon. She has diverticula throughout. It is more severe in the sigmoid colon. They were moderate in size and distributed quite evenly. Once in the rectum, the scope was retroflexed and she has a little of bit internal hemorrhoids as well. After this, the gas was suctioned out and the colonoscope removed. Nga tolerated her lower endoscopy quite well with the help of our nurse automotive services manager and the propofol infusion. RECOMMENDATIONS: I will see Nga back in my office in 7 to 14 days to review her results. We can see that on her preop labs her hemoglobin is now normal at 12.3 with a mean cell volume of 87.9. However, her eosinophils are slightly high at 9.6. Jerardo Garcia MD ALB/MODL /[id number] cc: MD Lei Malik MD Robert C Quackenbush, MD Copies: JERARDO GARCIA MD, MALCOLM MD Electronically Signed By: JERARDO GARCIA MD 11/29/23 0943 PATIENT NAME: NGA HO OPERATIVE REPORT DATE OF : 47 REPORT #: [id number] PHYSICIAN: JERARDO GARCIA MD PCP: LEI CLEMENT MD REPORT IS CONFIDENTIAL AND NOT TO BE RELEASED WITHOUT AUTHORIZATION [address] [address] Signed KO WEST MD ~ Electronically Signed By: JERARDO GARCIA MD 11/29/23 0943 PATIENT NAME: RADHA HOQUENTIN RICKSE OPERATIVE REPORT DATE OF : 47 REPORT #: [id number] PHYSICIAN: JERARDO GARCIA MD PCP: LEI CLEMENT MD REPORT IS CONFIDENTIAL AND NOT TO BE RELEASED WITHOUT AUTHORIZATION
--- NOTE | 2023-12-05 16:24 | PATH ---
[facility] [address] [facility] [place], [place] [address] Signed SPECIMEN(S): A ANTRUM BIOPSY SPECIMEN(S): B GE JUNCTION BIOPSY SPECIMEN(S): C MIDDLE ESOPHAGEAL BIOPSY SPECIMEN SOURCE: A. ANTRUM BIOPSY B. GE JUNCTION BIOPSY C. MIDDLE ESOPHAGEAL BIOPSY CLINICAL HISTORY: Anemia, family history colon cancer. Post-gastritis FINAL PATHOLOGIC DIAGNOSIS: A. Antrum, biopsy: - Benign gastric antral type mucosa with mild chronic gastritis. - Helicobacter pylori immunostain is negative for organisms. B. GE junction, biopsy - Benign esophageal mucosa with reactive features. - Negative for glandular epithelium. C. Middle esophageal biopsy: - Benign esophageal epithelium with reactive features and increased epithelial eosinophils (measuring approximately 20 per HPF). - See comment. COMMENT: The increased mid esophageal epithelial eosinophils are compatible with eosinophilic esophagitis in the appropriate clinical setting. Clinical correlation requested. JVR:cml MICROSCOPIC EXAMINATION: Histologic sections of all submitted blocks are examined by light microscopy. These findings, together with the gross examination, support the pathologic diagnosis. Helicobacter pylori immunostain is performed with appropriate positive and negative controls on block A1 and is negative for organisms. JVR:cml GROSS DESCRIPTION: A. The specimen, labeled and designated "Smith, " and designated on the requisition "antrum biopsy," is received in formalin and consists of one PATIENT NAME: NGA SMITH PATHOLOGY DATE OF : 47 REPORT #: [id number] PHYSICIAN: MONA PATHOLOGY PCP: VÍCTOR CLEMENT MD REPORT IS CONFIDENTIAL AND NOT TO BE RELEASED WITHOUT AUTHORIZATION [facility] [address] [place], [place] [address] Signed fragment of soft hawkins tissue that is up to 0.3 cm in greatest dimension. Entirely submitted in (A1). B. The specimen, labeled and designated "Luis, " and designated on the requisition "EG junction biopsy," is received in formalin and consists of one fragment of soft hawkins tissue that is up to 0.2 cm in greatest dimension. Entirely submitted in (B1). C. The specimen, labeled and designated "Smith, " and designated on the requisition "mid esophagus biopsy," is received in formalin and consists of one fragment of soft hawkins tissue that is up to 0.4 cm in greatest dimension. Entirely submitted in (C1). TW (under the direct supervision of a pathologist) The Gross Description was prepared using a voice recognition system. The report was reviewed for accuracy; however, sound-alike word errors, addition and/or deletions may occur. If there is any question about this report, please contact Client Services. ADDITIONAL NOTES: Immunohistochemical and/or in situ hybridization studies were performed on this case with the appropriate positive controls that react as expected. This test was developed and its performance characteristics determined by [facility]. It has not been cleared or approved by the U.S. Food and Drug Administration. The FDA has determined that such clearance or approval is not necessary. This test is used for clinical purposes. It should not be regarded as investigational or for research. [facility] is certified under the Clinical Laboratory Improvement Amendments of 1988 (CLIA) as qualified to perform high complexity clinical laboratory testing. This assay has not been validated for specimens that have been decalcified. PERFORMING LABORATORY: Technical component was performed by [facility], [address] [place] [id number] (CLIA# [id number]). Professional interpretation was performed by [facility], [address] [place] [address], [place] [address] (CLIA#: [id number]). Diagnostician: Mil Child MD Pathologist Electronically Signed 12/05/2023 PATIENT NAME: NGA SMITH PATHOLOGY DATE OF : 47 REPORT #: [id number] PHYSICIAN: MONA PATHOLOGY PCP: VÍCTOR CLEMENT MD REPORT IS CONFIDENTIAL AND NOT TO BE RELEASED WITHOUT AUTHORIZATION [address] [address] Signed Copies: ~ PATIENT NAME: NGA SMITH PATHOLOGY DATE OF : 47 REPORT #: [id number] PHYSICIAN: [facility] PCP: VÍCTOR CLEMENT MD REPORT IS CONFIDENTIAL AND NOT TO BE RELEASED WITHOUT AUTHORIZATION
== END 2023-11-29 09:20 | disposition home or self-care (01) ==
LOC: OPS 05:50 → DS 05:50 → OPS 07:30 → DS 09:00 → OPS 09:00
PROVIDERS: ATTEND Colon & Rectal Surgery
PROC: 0DB68ZX Excision of Stomach, Via Natural or Artificial Opening Endoscopic, Diagnostic (ICD-10-PCS; 2023-11-29)
PROC: 0DJD8ZZ Inspection of Lower Intestinal Tract, Via Natural or Artificial Opening Endoscopic (ICD-10-PCS; principal; 2023-11-29 07:30)
PROC: 0DB58ZX Excision of Esophagus, Via Natural or Artificial Opening Endoscopic, Diagnostic (ICD-10-PCS; 2023-11-29 07:30)
DX: K21.00 Gastro-esophageal reflux disease with esophagitis, without bleeding (principal); K44.9 Diaphragmatic hernia without obstruction or gangrene; K29.50 Unspecified chronic gastritis without bleeding; K57.30 Diverticulosis of large intestine without perforation or abscess without bleeding; K64.8 Other hemorrhoids; Q43.8 Other specified congenital malformations of intestine; D50.9 Iron deficiency anemia, unspecified; I10 Essential (primary) hypertension; E78.2 Mixed hyperlipidemia; J45.909 Unspecified asthma, uncomplicated; Z88.5 Allergy status to narcotic agent; Z79.899 Other long term (current) drug therapy
CPT/HCPCS: 00813; 36415; 87077; 88305; 88342; J0461; J0690; J2704; J7121

== ENCOUNTER 2024-08-29 06:20 | Day surgery (SDC) | payer MEDICARE, OTHER ==
[~2024-08-29] VITALS: Ht 167.6 cm; Wt 100.0 kg
[~2024-08-29 06:20] MED LIST changes: +WIXELA 250-501 EACH
[2024-08-29] MEDS ORDERED: KETOROLAC TROMETHAMINE 30 MG/ML VIAL ONE ×2 (06:30→07:41)
[2024-08-29 06:35] VITALS: BP 141/78
[2024-08-29] MEDS ORDERED: CEFAZOLIN SODIUM 2 GM/20 ML SYR IV SCH (07:00)
[2024-08-29] MEDS ORDERED: TRANEXAMIC ACID IN NACL,ISO-OS 1,000 MG/100 ML PIGGYBACK IV SCH (07:00)
[2024-08-29] MEDS ORDERED: LIDOCAINE HCL 1% 5 ML SDV INJ ONE (07:00)
[2024-08-29] MEDS ORDERED: IBLOOD GLUCOSE TEST STRIP 1 EA TEST VI PRN ×2 (07:00→07:30)
[2024-08-29] MEDS ORDERED: propofoL 200 MG/20 ML VIAL ONE (07:27)
[2024-08-29] MEDS ORDERED: fentaNYL citrate 100 MCG/2 ML VIAL ONE (07:27)
[2024-08-29] MEDS ORDERED: LIDOCAINE HCL 2% 5 ML SDV ONE (07:27)
[2024-08-29] MEDS ORDERED: fentaNYL citrate 50 MCG/ML SDV IV PRN (07:30)
[2024-08-29] MEDS ORDERED: NALOXONE HCL 0.4 MG SYR IV PRN (07:30)
[2024-08-29] MEDS ORDERED: KETOROLAC TROMETHAMINE 15 MG/ML VIAL IV PRN (07:30)
[2024-08-29] MEDS ORDERED: TRAMADOL HCL 50 MG TAB PO PRN (07:30)
[2024-08-29] MEDS ORDERED: ondansetron HCL 4 MG/2 ML VIAL IV PRN (07:30)
[2024-08-29] MEDS ORDERED: ondansetron HCL 4 MG/2 ML VIAL ONE (07:42)
[2024-08-29] MEDS ORDERED: TRAMADOL HCL50 MG PO (08:08)
[2024-08-29] MEDS ORDERED: CELECOXIB200 MG PO (08:08)
--- NOTE | 2024-08-29 08:22 | NUR ---
08/29/24 0822 Ronda Charles 0808 PT ARRIVED TO PACU ON 6L VIA MASK, RESP EVEN AND UNLABORED. PT REACTIVE TO TACTILE STIMULI. 0814 PT WAKES AND O2 REMOVED. PT EASILY FALLS BACK TO SLEEP. 0820 PT WAKES ON HER OWN AND IS REORIENTED TO PACU, PT DENIES NAUSEA AND PAIN.
[2024-08-29 08:42] VITALS: BP 128/66
--- NOTE | 2024-08-29 08:45 | NUR ---
Patient returns to room 5 from PACU. report taken from ALEKSANDAR Bond. Patient is reporting pain rating 5/10 and requesting an oral pain medication. Ronda reports that patient has been sleeping up until now. Oxygen saturations in PACU were upper 80's to lower 90's. upon arrival, oxygen is 99% on room air. Oxygen by NC not replaced at this time. Dressing to left knee in place: Adaptic, abd, SERA, and ice in place. Vital signs obtained. Water and crackers provided. Patient then medicated with 50mg Tramadol for pain. I explained the expectations to be able to go home and she expressed understanding. Bed in lowest position and call light within reach. She denies any other needs at this time.
[2024-08-29 09:45] VITALS: BP 150/74
--- NOTE | 2024-08-29 09:45 | NUR ---
Patient at this time has met all dicharge critera. She has ambulated, voided, eaten and drank, and reports that her pain in under control. She expressed the desire to go home. Patient is allowed to get dressed at this time.
--- NOTE | 2024-08-29 09:50 | NUR ---
Discharge instructions were reviewed in detail with her present. She denies any questions or concerns at this time. Dressing is intact to left knee. Ice pack refreshed with new ice and water cup refilled. IV has been removed from right forearm. Patient is discharged from unit via wheelchair where her is to take her home.
--- NOTE | 2024-08-29 10:12 | OR ---
[facility] [address], [place] [address] Signed DATE OF OPERATION: 08/29/2024 SURGEON: Daphne Miller MD PREOPERATIVE DIAGNOSIS: Medial meniscus tear, left knee. POSTOPERATIVE DIAGNOSIS: Medial meniscus tear, left knee. PROCEDURE PERFORMED: Left knee arthroscopy with partial medial meniscectomy. BIBLICAL STUDIES PROFESSOR: None. ANESTHESIA: General. BLOOD LOSS: Minimal. BRIEF HISTORY: Nga is a 79-year-old female with pain and instability in her knee. Her radiographs showed minimal arthritis. Her MRI showed a large complex tear posteromedially. Risks and benefits of operative treatment were discussed with her and she elected to proceed. Once consent was obtained, she was taken to the operating room. After adequate anesthesia, she was placed on the operating table. The downside pressure points were well padded. The right leg was flexed, abducted, and externally rotated on a well-padded leg lobato. The left was placed in well-padded leg lobato with no tourniquet. The leg was then prepped and draped in a standard sterile fashion. Portal sites were injected with 0.25% Marcaine with epinephrine. Standard inferolateral and superolateral portals were established and the scope was introduced into the knee. ARTHROSCOPIC FINDINGS: The patellofemoral joint was intact with no significant chondromalacia. Medial and lateral gutters were clear. The lateral compartment was intact with minimal grade 1 softening and normal meniscus. ACL and PCL were intact. 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 The meniscus was towards the mid body all the way posteriorly. Electronically Signed By: DAPHNE MILLER MD 08/29/24 1012 PATIENT NAME: NGA HO OPERATIVE REPORT DATE OF : 47 REPORT #: [id number] PHYSICIAN: DAPHNE MILLER MD PCP: GUADALUPE ALICEA MD REPORT IS CONFIDENTIAL AND NOT TO BE RELEASED WITHOUT AUTHORIZATION [facility] [address] [place], [place] [address] Signed DESCRIPTION OF PROCEDURE: Standard inferomedial portal was established after localization using a spinal needle. The straight and curved biters were then used to trim the meniscus back to a stable rim anteriorly and posteriorly, this was then feathered and smoothed using shaver and all debris was evacuated. The scope was then withdrawn. Portals were closed with 3-0 nylon and the knee was injected with 60 mg Toradol. The wounds were then dressed with Adaptic, ABD, and Den wrap. She tolerated the procedure well. All sponge, needle, and instrument counts were correct. Daphne Miller MD BA/CECELIA /[id number] Copies: ~ Electronically Signed By: DAPHNE MILLER MD 08/29/24 1012 PATIENT NAME: NGA HO OPERATIVE REPORT DATE OF : 47 REPORT #: [id number] PHYSICIAN: DAPHNE MILLER MD PCP: GUADALUPE ALICEA MD REPORT IS CONFIDENTIAL AND NOT TO BE RELEASED WITHOUT AUTHORIZATION
[2024-08-29] MEDS ORDERED: SEVOFLURANE 250 ML BTL INH ONE (10:26)
[2024-08-29] MEDS ORDERED: CELECOXIB 200 MG CAP PO SCH (17:00)
== END 2024-08-29 09:55 | disposition home or self-care (01) ==
LOC: DS 06:20
PROVIDERS: ATTEND Specialist
PROC: 0SBD4ZZ Excision of Left Knee Joint, Percutaneous Endoscopic Approach (ICD-10-PCS; principal; 2024-08-29 08:00)
DX: S83.232A Complex tear of medial meniscus, current injury, left knee, initial encounter (principal); M94.262 Chondromalacia, left knee; X58.XXXA Exposure to other specified factors, initial encounter
CPT/HCPCS: 01400; J0690; J1885; J2003; J2405; J2704; J3010; J7121